=== PATIENT | female | born 1975 | race Caucasian/White ===

== ENCOUNTER → 2018-10-04 | Outpatient (CLI) | payer OTHER ==
[~2018-10-04] MED LIST: ESTROGEN PO; IBUPROFEN 800800 MG PO; MULTI VITAMIN1 EACH PO; NORCO 5-325 TA1 EACH PO; OMEPRAZOLE40 MG PO; XANAX 0.25 MG0.25 MG PO; ZOFRAN ODT4 MG PO
== END ==
LOC: CAT 15:39
DX: Z13.6 Encounter for screening for cardiovascular disorders (principal); E78.00 Pure hypercholesterolemia, unspecified; I25.10 Atherosclerotic heart disease of native coronary artery without angina pectoris

== ENCOUNTER → 2020-02-29 | Outpatient (CLI) | payer BC, OTHER | LOC: RAD 10:25 | PROVIDERS: ATTEND Neuromusculoskeletal Medicine & OMM | DX: N63.10 Unspecified lump in the right breast, unspecified quadrant (principal) ==

== ENCOUNTER → 2021-03-11 | Outpatient (CLI) | payer BC, OTHER | LOC: BC 03-04 15:57 | PROVIDERS: ATTEND Nurse Practitioner | DX: Z12.31 Encounter for screening mammogram for malignant neoplasm of breast (principal); N63.10 Unspecified lump in the right breast, unspecified quadrant; N63.20 Unspecified lump in the left breast, unspecified quadrant ==

== ENCOUNTER → 2021-03-14 | Outpatient (CLI) | payer BC, OTHER | LOC: ULTRA 08:41 | PROVIDERS: ATTEND Nurse Practitioner | DX: N60.02 Solitary cyst of left breast (principal); N60.01 Solitary cyst of right breast; N63.10 Unspecified lump in the right breast, unspecified quadrant; N63.20 Unspecified lump in the left breast, unspecified quadrant ==